=== PATIENT | female | born 1950 | race Caucasian/White ===

== ENCOUNTER 2018-03-14 11:45 | Emergency (ER) | payer BC ==
--- NOTE | 2018-03-14 12:42 | ED Physician Documentation ---
PD HPI URI - Stated complaint Stated Complaint: COUGH/SORE THROAT - Chief complaint Chief Complaint: Fever - History obtained from History obtained from: Patient - History of Present Illness Timing - onset: How many weeks ago (4) Timing duration: Weeks (4) Timing details: Gradual onset, Still present Associated symptoms: Nasal congestion, Productive cough, Dyspnea. No: Fever, Chest pain Contributing factors: No: Sick contact, Immunocompromised, COPD / asthma Improves by: Rest. No: Medication (has not taken meds) Worsened by: Activity Similar symptoms before: Has not had sx before Recently seen: Not recently seen Review of Systems Constitutional: reports: Chills, Myalgias. denies: Fever Nose: reports: Congestion Throat: denies: Sore throat Cardiac: denies: Chest pain / pressure, Palpitations Respiratory: reports: Dyspnea, Cough. denies: Wheezing GI: denies: Vomiting, Diarrhea Musculoskeletal: denies: Extremity swelling PD PAST MEDICAL HISTORY - Past Medical History Cardiovascular: None Respiratory: None Neuro: None Endocrine/Autoimmune: None - Present Medications Home Medications: Ambulatory Orders Medication Instructions Recorded Confirmed Azithromycin [Zithromax] 0 mg PO DAILY #6 tablet 03/14/18 Benzonatate [Tessalon Perle] 100 - 200 mg PO TID PRN #30 capsule 03/14/18 Dexamethasone [Decadron] 4 mg PO DAILY #5 tablet 03/14/18 - Allergies Allergies/Adverse Reactions: Allergies Allergy/AdvReac Type Severity Reaction Status Date / Time No Known Drug Allergies Allergy Verified 03/14/18 11:57 - Living Situation Living Situation: reports: With spouse/s.o. Living Arrangement: reports: At home - Social History Does the pt smoke?: No Does the pt have substance abuse?: No PD ED PE NORMAL - Vitals Vital signs reviewed: Yes - General General: Alert and oriented X 3, No acute distress, Well developed/nourished - HEENT HEENT: Pharynx benign - Neck Neck: Supple, no meningeal sign, No adenopathy - Cardiac Cardiac: RRR, No murmur - Respiratory Respiratory: No respiratory distress, Clear bilaterally - Abdomen Abdomen: Soft, Non tender - Derm Derm: Normal color, Warm and dry - Extremities Extremities: No edema, No calf tenderness / cord - Neuro Neuro: Alert and oriented X 3, No motor deficit, Normal speech Results - Vitals Vitals: Vital Signs - 24 hr 01/01/19 01/01/19 01/01/19 11:53 12:11 13:44 Temperature 36.4 C L 37.1 C Heart Rate 82 85 82 Respiratory 18 18 18 Rate Blood Pressure 120/78 111/86 H 111/75 O2 Saturation 99 98 100 Oxygen O2 Source Room air - Labs Labs: Laboratory Tests 03/14/18 12:00 Group A Strep Rapid Negative - Rads (name of study) chest xray Radiology: Prelim report reviewed (normal; no infiltrates), See rad report PD MEDICAL DECISION MAKING - ED course Complexity details: reviewed results (cxr clear), considered differential, d/w patient Departure - Departure Disposition: Home, Self Care Clinical Impression: Persistent cough for 3 weeks or longer Acute bronchitis Qualifiers: Bronchitis organism: unspecified organism Qualified Code(s): J20.9 - Acute bronchitis, unspecified Condition: Stable Record reviewed to determine appropriate education?: Yes Instructions: ED Upper Resp Infec Abx Tx Prescriptions: Azithromycin [Zithromax] 0 mg PO DAILY #6 tablet Benzonatate [Tessalon Perle] 100 - 200 mg PO TID PRN #30 capsule PRN Reason: Cough Dexamethasone [Decadron] 4 mg PO DAILY #5 tablet Comments: Your chest x-ray is clear so no obvious pneumonia. There is slight haziness that suggest some of the phlegm is down into the lungs. The radiologist reading is no pneumonia. It still sounds like a prolonged bronchitis which raises the concern for bacterial we will treated with Zithromax and Decadron daily for 5 days for infection and inflammation. Use Tessalon if needed for cough. Recheck if not improved over the next week. Discharge Date/Time: 03/14/18 13:45
--- NOTE | 2018-03-14 12:43 | XRAY Report ---
Reason: cough Procedure Date: 03/14/2018 Accession Number: [id number] / [id number] Procedure: XR - Chest 2 View X-Ray CPT Code: 57594 FULL RESULT: EXAM: CHEST RADIOGRAPHY EXAM DATE: 03/14/2018 12:35 PM. CLINICAL HISTORY: Cough. COMPARISON: None. TECHNIQUE: 2 views. FINDINGS: Lungs/Pleura: No focal opacities evident. No pleural effusion. No pneumothorax. Normal volumes. Mediastinum: Heart and mediastinal contours are unremarkable. Other: None. IMPRESSION: No acute cardiopulmonary abnormality. [facility]
[2018-03-14 13:45] VITALS: BP 111/75
== END 2018-03-14 13:45 | disposition home or self-care (01) ==
LOC: ED 11:45
DX: J20.9 Acute bronchitis, unspecified (principal)
CPT/HCPCS: 71046; 87070; 87430; 99283